=== PATIENT | male | born 1985 | race African-American/Black ===

== ENCOUNTER 2017-10-28 15:48 | Emergency (ER) | payer BC, OTHER ==
[2017-10-28] MEDS ORDERED: Ibuprofen 800 MG TAB ONE (16:21)
[2017-10-28] MEDS ORDERED: Clindamycin 300 MG/2 ML VIAL ONE (16:21)
== END 2017-10-28 16:46 | disposition home or self-care (01) ==
LOC: NAV ERS 15:48
DX: K04.7 Periapical abscess without sinus (principal)
CPT/HCPCS: 96372; J3490

== ENCOUNTER 2023-09-25 08:00 | Emergency (ER) | payer BC, SELFPAY | END 2023-09-25 09:44 | disposition home or self-care (01) | LOC: NAV ERS 08:00 | DX: S93.401A Sprain of unspecified ligament of right ankle, initial encounter (principal); X50.9XXA Other and unspecified overexertion or strenuous movements or postures, initial encounter | CPT/HCPCS: 29515 ==